=== PATIENT | female | born 1980 | race Asian ===

== ENCOUNTER 2017-07-16 09:38 | Day surgery (SDC) | payer OTHER ==
[2017-07-16] MEDS: SOD CHLORIDE 0.9% 1,000 ML IV (06:00)
[~2017-07-16 09:38] MED LIST: ATROPINE 1 MG/10 ML SYRINGE IV; CEFAZOLIN 1 GM INJ; CEFAZOLIN 2 GM/50 ML (PMX) 50 ML IVPB; DIPHENHYDRAMINE 50 MG INJ IV; EPHEDrine SULFATE 50 MG/5 ML SYG IV; FENTAnyl 50 MCG/ML VIAL IV; HYDROmorphONE (0.2 MG/ML) 10ML SYG IV; LABETALOL HCL 20MG INJ IV; MIDAZOLAM 1 MG/ML 2 ML INJ IV; OXYCODONE/ACETAMINOPHEN (5/325) TAB PO; SUCCINYLCHOLINE CHLORIDE 100 MG/5 ML SYG IV; hydrALAzine 20 MG INJ IV; morphine (1 MG/ML) 10ML SYRINGE IV
[2017-07-16] MEDS ORDERED: DEXAMETHASONE 4 MG/ML 1 ML INJ (10:13)
[2017-07-16] MEDS ORDERED: LIDOCAINE 2% (SDV) 5 ML INJ (10:13)
[2017-07-16] MEDS ORDERED: MIDAZOLAM 1 MG/ML 2 ML INJ (10:13)
[2017-07-16] MEDS ORDERED: GLYCOPYRROLATE 0.4 MG INJ (10:13)
[2017-07-16] MEDS ORDERED: ROCURONIUM 50 MG INJ (10:13)
[2017-07-16] MEDS ORDERED: FENTAnyl 50 MCG/ML VIAL (10:13)
[2017-07-16] MEDS ORDERED: PROPOFOL 20 ML (10:13)
[2017-07-16] MEDS ORDERED: NEOSTIGMINE 3 MG/3 ML SYRINGE (10:13)
[2017-07-16] MEDS: HYDROmorphONE (0.2 MG/ML) 10ML SYG IV (12:22)
[2017-07-16] MEDS: ONDANSETRON 4 MG INJ IV (12:22)
[2017-07-16] MEDS: MEPERIDINE 25 MG INJ IV (12:23)
[2017-07-16] MEDS: POLYMYXIN/BACITRACIN 1L IRRIG (12:26)
[2017-07-16] MEDS: BUPIVACAINE 0.25% (MPF) 30 ML INJ (12:26)
[2017-07-16] MEDS: HYDROCODONE/APAP (5/325) TAB PO (13:19)
== END 2017-07-16 15:15 | disposition home or self-care (01) ==
LOC: SDS 09:38
DX: K43.6 Other and unspecified ventral hernia with obstruction, without gangrene (principal)
CPT/HCPCS: 49653

== ENCOUNTER 2018-03-10 16:18 | Emergency (ER) | payer OTHER ==
[2018-03-10] MEDS: SOD CHLORIDE 0.9% 1,000 ML IV (17:23)
[2018-03-10] MEDS: METOCLOPRAMIDE 10 MG INJ IV (17:28)
[2018-03-10] MEDS: DIPHENHYDRAMINE 50 MG INJ IV (17:28)
[2018-03-10 17:30] LABS: ADD MAN DIFF? NO
[2018-03-10 17:39] LABS: WHITE BLOOD COUNT 7.9 10^3/ul (4.8-10.8)
[2018-03-10 17:39] LABS: BASOPHIL # 0.1 10^3/ul (0.0-0.1); BASOPHILS % 0.6 % (0.0-2.0); EOSINOPHILS # 0.3 10^3/ul (0.0-0.5); EOSINOPHILS % 3.4 % (0.0-7.0); HEMATOCRIT 38.2 % (37.0-47.0); HEMOGLOBIN 12.6 g/dl (12.0-16.0); LYMPHOCYTES # 2.7 10^3/ul (0.8-2.9); LYMPHOCYTES % 33.5 % (15.0-51.0); MEAN CORPUSCULAR HEMOGLOBIN 28.5 pg (29.0-33.0); MEAN CORPUSCULAR VOLUME 86.4 fl (82.0-101.0); MEAN PLATELET VOLUME 11.7 fl (7.4-10.4); MONOCYTE # 0.5 10^3/ul (0.3-0.9); MONOCYTES % 5.8 % (0.0-11.0); NEUTROPHIL # 4.5 10^3/ul (1.6-7.5); NEUTROPHILS % 56.6 % (39.0-77.0); PLATELET COUNT 240 10^3/UL (140-415); RED BLOOD COUNT 4.42 10^6/ul (4.20-5.40); RED CELL DISTRIBUTION WIDTH 13.3 % (11.5-14.5)
[2018-03-10] MEDS: KETOROLAC 30 MG INJ IV (17:57)
[2018-03-10 18:04] LABS: ALANINE AMINOTRANSFERASE 33 IU/L (13-69); ALBUMIN 4.2 g/dl (3.3-4.9); ALBUMIN/GLOBULIN RATIO 1.13; ALKALINE PHOSPHATASE 56 IU/L (42-121); ANION GAP 11 (8-16); ASPARTATE AMINO TRANSFERASE 25 IU/L (15-46); BILIRUBIN,INDIRECT 0.3 mg/dl (0-1.1); BILIRUBIN,TOTAL 0.3 mg/dl (0.2-1.3); BLOOD UREA NITROGEN 16 mg/dl (7-20); CALCIUM 9.8 mg/dl (8.4-10.2); CARBON DIOXIDE 29 mmol/L (21-31); CHLORIDE 105 mmol/L (97-110); CREATININE 0.61 mg/dl (0.44-1.00); GLUCOSE 111 mg/dl (70-220); POTASSIUM 3.9 mmol/L (3.5-5.1); SODIUM 141 mmol/L (135-144); TOTAL PROTEIN 7.9 g/dl (6.1-8.1)
== END 2018-03-10 19:30 | disposition home or self-care (01) ==
LOC: FTE 16:18
DX: R51 Headache (principal)
CPT/HCPCS: 36415; 70450; 80053; 81025; 85025; 93005; 96374; 96375; 99285-25